=== PATIENT | male | born 1955 | race Caucasian/White ===

== ENCOUNTER 2019-04-08 16:15 | Inpatient (IN) | payer OTHER ==
[~2019-04-08] VITALS: Ht 170.2 cm; Wt 83.9 kg
[~2019-04-08 16:15] MED LIST: HEPSERA10 MG PO; PANTOPRAZOLE SO40 MG PO
--- OUTSIDE RECORDS SUMMARY | 2019-04-08 16:18 | XMS REPORT | Continuity of Care Document ---
Author Author [facility] Organization [facility] Address Unknown Phone Unavailable Care Team Providers Care Group Home Manager Name Role Phone MD Darien, Christelle CASTAÑEDA Unavailable Insurance Providers Payer name Policy type / Coverage type Policy ID Covered libertarian ID Policy Russell [facility] Encounters Encounter Performer Location Date Office Visit Christelle Ledzema MD [facility] Colorectal Surgery Apr 07, 2014 Allergies, Adverse Reactions, Alerts Type Substance Reaction Status Drug allergy MORPHINE Active Drug allergy LEVAQUIN Active Drug allergy IBUPROFEN Active Drug allergy CODEINE Active Problems Problem Effective Dates Problem Status BLEEDING, RECTAL/ANAL Apr 07, 2014 Active EXTERNAL HEMORRHOIDS, THROMBOSED Apr 07, 2014 Active SCREENING FOR COLON CANCER Apr 07, 2014 Active RECTAL PAIN Apr 07, 2014 Active Procedures Date Description Comments Apr 07, 2014 smoking status Never smoker Medications Medication Instructions Start Date Status ADEFOVIR DIPIVOXIL 10 MG TABS 1 tablet once a day Apr 07, 2014 Active PANTOPRAZOLE SODIUM 40 MG TBEC once a day Apr 07, 2014 Active SIMVASTATIN 10 MG TABS 1 tablet once a day Apr 07, 2014 Active Vital Signs Date Description Test Result Apr 07, 2014 weight E&M WEIGHT 189 lb Apr 07, 2014 temperature E&M TEMPERATURE 98.6 deg f Apr 07, 2014 pulse rate E&M PULSE RATE 78 /min Apr 07, 2014 blood pressure, systolic BP SYSTOLIC 143 mm Hg Apr 07, 2014 blood pressure, diastolic BP DIASTOLIC 85 mm Hg
--- OUTSIDE RECORDS SUMMARY | 2019-04-08 16:18 | XMS REPORT | Continuity of Care Document ---
Author Author [facility] Address Unknown Phone Unavailable Care Team Providers Care Video Systems Engineer Name Role Phone MD Darien, Christelle Unavailable Insurance Providers Payer name Policy type / Coverage type Policy ID Covered libertarian ID Policy Russell [facility] ([facility]) Encounters Encounter Performer Location Date Lab Report Christelle Ledezma MD [facility] Apr 10, 2014 Allergies, Adverse Reactions, Alerts Type Substance [...]
--- OUTSIDE RECORDS SUMMARY | 2019-04-08 16:18 | XMS REPORT | Continuity of Care Document ---
Author Author [facility] Address Unknown Phone Unavailable Care Team Providers Care Inspector Brake Lining Name Role Phone [employer] Unavailable Unavailable Problems Problem Status Onset Date Classification Date Reported Comments Source BLEEDING, RECTAL/ANAL Active 04/07/2014 Condition 04/10/2014 [facility] EXTERNAL HEMORRHOIDS, THROMBOSED Active 04/07/2014 Condition 04/10/2014 [facility] SCREENING FOR COLON CANCER Active 04/07/2014 Condition 04/10/2014 [facility] RECTAL PAIN Active 04/07/2014 Condition 04/10/2014 [facility] Medications Medication Details Route Status Patient Instructions Ordering Provider Order Date Source ADEFOVIR DIPIVOXIL 10 MG TABS 1 tablet once a day Active 04/07/2014 [facility] PANTOPRAZOLE SODIUM 40 MG TBEC once a day Active 04/07/2014 [facility] SIMVASTATIN 10 MG TABS 1 tablet once a day Active 04/07/2014 [facility] Allergies, Adverse Reactions, Alerts Substance Category Reaction Severity Reaction type Status Date Reported Comments Source MORPHINE Drug allergy MORPHINE 04/07/2014 [facility] LEVAQUIN Drug allergy LEVAQUIN 04/07/2014 [facility] IBUPROFEN Drug allergy IBUPROFEN 04/07/2014 [facility] CODEINE Drug allergy CODEINE 04/07/2014 [facility] Immunizations No Data Provided for This Section Results No Data Provided for This Section Pathology Reports No Data Provided for This Section Diagnostic Reports No Data Provided for This Section Consultation Notes No Data Provided for This Section Discharge Summaries No Data Provided for This Section History and Physicals No Data Provided for This Section Vital Signs Vital Sign Value Date Comments Source Weight 189 04/07/2014 [facility] Temperature Oral (F) 98.6 F 04/07/2014 [facility] Heart Rate 78 04/07/2014 [facility] Systolic (mm Hg) 143 04/07/2014 [facility] Diastolic (mm Hg) 85 04/07/2014 [facility] Encounters Location Location Details Encounter Type Encounter Number Reason For Visit Attending Provider ADM Date DC Date Status Source [facility] Colorectal Surgery Office Visit [id number] Christelle Ledezma MD 04/07/2014 04/07/2014 [facility] Lab Report [id number] Christelle Ledezma MD 04/10/2014 04/10/2014 [facility] Procedures No Data Provided for This Section Assessment and Plan No Data Provided for This Section Plan of Care No Data Provided for This Section Social History No Data Provided for This Section Family History No Data Provided for This Section Advance Directives No Data Provided for This Section Functional Status No Data Provided for This Section
--- NOTE | 2019-04-08 17:40 | Diagnostic Imaging Report ---
Examination: Single AP view of the chest. COMPARISON: None. INDICATION: Vision loss DISCUSSION: Lines/tubes: 3-lead pacemaker. Lungs: The lungs are well inflated and clear. No pneumonia or pulmonary edema. Pleura: No pleural effusion or pneumothorax. Heart and mediastinum: The heart and the mediastinum are unremarkable. Bones and soft tissues: No acute bony abnormalities. IMPRESSION: 1. No acute cardiopulmonary abnormalities. Signed by: Dr. Jordan Munoz M.D. on 04/08/2019 5:36 PM
--- NOTE | 2019-04-08 17:47 | Diagnostic Imaging Report ---
History:Headache, vision loss left eye. Comparison studies: None Technique: Axial images were obtained from the skull base to the vertex. Coronal and sagittal reconstructions obtained from the axial data. Dose modulation, iterative reconstruction, and/or weight based adjustment of the mA/kV was utilized to reduce the radiation dose to as low as reasonably achievable. Findings: Scalp/skull: No abnormalities. No fractures, blastic or lytic lesions. Extra-axial spaces: No masses. No fluid collections. Brain sulci: Appropriate for age. Ventricles: Normal in size and configuration. No hydrocephalus. Parenchyma: No abnormal densities. No masses, hemorrhage, acute or chronic cortical vascular insults. Sellar/suprasellar region: No abnormalities Craniocervical junction: Patent foramen magnum. No Chiari one malformation. Atherosclerotic calcifications of the carotid siphons. IMPRESSION: No acute abnormalities . Signed by: DR Henry Norris M.D. on 04/08/2019 5:43 PM
[2019-04-08] MEDS ORDERED: ONDANSETRON HCL INJ 2MG/ML 2ML 2 MG/ML VIAL IV PRN (18:30)
[2019-04-08] MEDS ORDERED: ASPIRIN 81 MG CHEW TAB PO ONE (18:30)
[2019-04-08] MEDS ORDERED: ZOLPIDEM TARTRATE 5 MG TAB PO PRN (18:30)
[2019-04-08] MEDS ORDERED: ACETAMINOPHEN 325 MG TAB PO PRN (18:30)
[2019-04-08 18:46] LABS: BASOPHILS % 0.3 % (0.0-1.0); EOSINOPHILS # (AUTO) 0.1 (0.0-0.4); EOSINOPHILS % 1.1 % (0.0-6.0); HEMATOCRIT 45.2 % (38.2-49.6); HEMOGLOBIN 15.4 g/dL (14.0-18.0); LYMPHOCYTES # (AUTO) 1.4 (1.0-3.2); LYMPHOCYTES % 21.7 % (18.0-39.1); MEAN CORPUSCULAR HEMOGLOBIN 31.1 pg (28-32); MEAN CORPUSCULAR HGB CONC 34.1 g/dL (31-35); MEAN CORPUSCULAR VOLUME 91.3 fL (81-99); MONOCYTES # (AUTO) 0.5 (0.2-0.8); MONOCYTES % 7.6 % (4.4-11.3); NEUTROPHILS # (AUTO) 4.3 (2.1-6.9); PLATELET COUNT 193 x10e3/uL (140-360); RED BLOOD COUNT 4.95 x10e6/uL (4.3-5.7); RED CELL DISTRIBUTION WIDTH 12.4 % (11.7-14.4)
[2019-04-08 18:50] LABS: BILIRUBIN,URINE NEGATIVE (NEGATIVE); CLARITY,URINE CLEAR (CLEAR); COLOR,URINE YELLOW (YELLOW); KETONES,URINE NEGATIVE (NEGATIVE); LEUKOCYTE ESTERASE ,URINE NEGATIVE (NEGATIVE); NITRITE,URINE NEGATIVE (NEGATIVE); PROTEIN,URINE DIPSTICK NEGATIVE (NEGATIVE); URINE UROBILINOGEN 0.2 mg/dL (0.2 - 1)
--- OUTSIDE RECORDS SUMMARY | 2019-04-08 18:51 | XMS REPORT ---
Author [facility] Address Unknown Phone Unavailable Care Team Providers Care Real Estate Underwriter Name Role Phone Kelly COOPER Unavailable Unavailable Problems This patient has no known problems. Allergies, Adverse Reactions, Alerts This patient has no known allergies or adverse reactions. Medications This patient has no known medications. Results Test Description Test Time Test Comments Text Results Atomic Results Result Comments CHEST SINGLE (NOT PORTABLE) 2019-04-08 17:36:00 [facility] [address] [place] [address] Patient Name: JACKIE LINARES MR #: [id number] : 1955 Age/Sex: 64/M Req #: [id number] Adm Physician: Ordered by: STEPHANIE COOPER MD Report #: [id number] Location: ER Room/Bed: Procedure: [id number] DX/CHEST SINGLE (NOT PORTABLE) Exam Date: 04/08/19 Exam Time: 1650 REPORT STATUS: Signed Examination: Single AP view of the chest. C OMPARISON: None. INDICATION: Vision loss DISCUSSION: Lines/tubes: 3-lead pacemaker. Lungs: The lungs are well inflated and clear. No pneumonia or pulmonary edema. Pleura: No pleural effusion or pneumothorax. Heart and mediastinum: The heart and the mediastinum are unremarkable. Bones and soft tissues: No acute bony abnormalities. IMPRESSION: 1. No acute cardiopulmonary abnormalities. Signed by: Dr. Katrina Ruiz M.D. on 04/08/2019 5:36 PM Dictated By: KATRINA RUIZ MD 35 Transcribed By: THERESA on 04/08/191735 COPY TO: STEPHANIE COOPER MD CT BRAIN WO 2019-04-08 17:36:00 [place] [address] Patient Name: JACKIE LINARES MR #: [id number] : 1955 Age/Sex: 64/M Req #: [id number] Adm Physician: Ordered by: STEPHANIE COOPER MD Report #: [id number] Location: Room/Bed: Procedure: CT/CT BRAIN WO Exam Date: 04/08/19 Exam Time: 1657 REPORT STATUS: Signed History:Headache, vision loss left eye. Comparison studies: None Technique: Axial images were obtained from the skull base to the vertex. Coronal and sagittal reconstructions obtained from the axial data. Dose modulation, iterative reconstruction, and/or weight based adjustment of the mA/kV was utilized to reduce the radiation dose to as low as reasonably achievable. Findings: Scalp/skull: No abnormalities. No fractures, blastic or lytic lesions. Extra-axial spaces: No masses. No fluid collections. Brain sulci: Appropriate for age. Ventricles: Normal in size and configuration. No hydrocephalus. Parenchyma: No abnormal densities. No masses, hemorrhage, acute or chronic cortical vascular insults. Sellar/suprasellar region: No abnormalities Craniocervical junction: Patent foramen magnum. No Chiari one malformation. Atherosclerotic calcifications of the carotid siphons. IMPRESSION: No acute abnormalities . Signed by: Phill PalomoD. on 04/08/2019 5:43 PM Dictated By: LJ BARNETT MD 42 Transcribed By: THERESA on 04/08/191742 COPY TO: STEPHANIE COOPER MD
--- OUTSIDE RECORDS SUMMARY | 2019-04-08 18:51 | XMS REPORT | Continuity of Care Document ---
Author Author [facility] Address Unknown Phone Unavailable Care Team Providers Care Booster Operator Name Role Phone [employer] Unavailable Unavailable Problems Problem Status Onset Date Classification Date Reported Comments Source BLEEDING, RECTAL/ANAL Active 04/07/2014 Condition 04/10/2014 [facility] EXTERNAL HEMORRHOIDS, THROMBOSED Active 04/07/2014 Condition 04/10/2014 [facility] SCREENING FOR COLON CANCER Active 04/07/2014 Condition 04/10/2014 [facility] RECTAL PAIN Active 04/07/2014 Condition 04/10/2014 [facility] Medications Medication Details Route Status Patient Instructions Ordering Provider Order Date Source ADEFOVIR DIPIVOXIL 10 MG TABS 1 tablet once a day Active 04/07/2014 [facility] PANTOPRAZOLE SODIUM 40 MG TBEC once a day Active 04/07/2014 [facility] SIMVASTATIN 10 MG TABS 1 tablet once a day Active 04/07/2014 [facility] Allergies, Adverse Reactions, Alerts Substance Category Reaction Severity Reaction type Status Date Reported Comments Source MORPHINE Drug allergy MORPHINE 04/07/2014 [facility] LEVAQUIN Drug allergy LEVAQUIN 04/07/2014 [facility] IBUPROFEN Drug allergy IBUPROFEN 04/07/2014 [facility] CODEINE Drug allergy CODEINE 04/07/2014 [facility] Immunizations No Data Provided for This Section [...] Date Comments Source Weight 189 04/07/2014 [facility] Temperature Oral (F) 98.6 F 04/07/2014 [facility] Heart Rate 78 04/07/2014 [facility] Systolic (mm Hg) 143 04/07/2014 [facility] Diastolic (mm Hg) 85 04/07/2014 [facility] Encounters Location Location Details Encounter Type Encounter Number Reason For Visit Attending Provider ADM Date DC Date Status Source [facility] Colorectal Surgery Office Visit [id number] Christelle Ledezma MD 04/07/2014 04/07/2014 [facility] Lab Report [id number] Christelle Ledezma MD 04/10/2014 04/10/2014 Medical Group [...]
[2019-04-08 18:53] LABS: INR 0.93
[2019-04-08 19:04] LABS: ALANINE AMINOTRANSFERASE 26 IU/L (0-55); ALBUMIN 4.5 g/dL (3.5-5.0); ALBUMIN/GLOBULIN RATIO 1.5 (0.8-2.0); ALKALINE PHOSPHATASE 84 IU/L (40-150); ANION GAP 13.8 mmol/L (8-16); BLOOD UREA NITROGEN 8 mg/dL (7-26); BUN/CREATININE RATIO 7 (6-25); CALCIUM 9.9 mg/dL (8.4-10.2); CARBON DIOXIDE 26 mmol/L (22-29); CHLORIDE 103 mmol/L (98-107); CREATINE KINASE 69 IU/L (30-200); CREATININE, SERUM 1.17 mg/dL (0.72-1.25); EST GLOMERULAR FILTRATION RATE > 60 ML/MIN (60-); GLUCOSE 95 mg/dL (74-118); MAGNESIUM 2.2 MG/DL (1.3-2.1); POTASSIUM 3.8 mmol/L (3.5-5.1); SODIUM 139 mmol/L (136-145)
[2019-04-08 19:30] LABS: CHOL/HDL RATIO 4.2 (3.9-4.7)
--- NOTE | 2019-04-08 19:43 | History and Physical ---
Mr. Enrique is a complex 64-year-old man, who presented to my office today with a complaint of visual difficulty. HISTORY OF PRESENT ILLNESS: The patient reports when he woke this morning that his vision in his left eye was completely black. In about 5 minutes, vision started to come back. He thinks it is not entirely normal at this time. The patient also reports that earlier this week probably on Friday, he had some symptoms in his right eye such as "stars," which his tongue presser, Dr. Morris tells him his ocular migraines. He chose to stop taking aspirin several years ago on his own. PAST MEDICAL HISTORY: Significant for hepatitis B. He required 1st pacemaker implant in 1999 for bradycardia. He had a lead fracture and replaced lead with new generator in [place] in April 2005. He had remote cholecystectomy and appendectomy, laser lead extraction in February of 2012, with new lead and last cardiac catheterization in November of 2012, showed very mild coronary artery disease. He had trauma to his left arm in 2008, requiring plates and screws. PERSONAL AND SOCIAL HISTORY: He does not smoke nor drink. FAMILY HISTORY: Father at 82 after coronary artery bypass graft surgery. CURRENT MEDICATIONS: At home include: 1. Protonix 40 mg daily. 2. Adefovir dipivoxil 10 mg daily. 3. Simvastatin 10 mg daily. As mentioned above, he has previously chosen not to take aspirin. PHYSICAL EXAMINATION: GENERAL: At this time shows a pleasant, alert man who is oriented, conversant, moving all 4 extremities fluent. VITAL SIGNS: Blood pressure is 124/80, pulse 74 and regular. HEAD, EYES, EARS, NOSE, AND THROAT: Relatively unremarkable. NECK: No jugular venous distention. No bruits. THORAX: Pacemaker sites intact. Heart sounds S1 and S2 are equal. No murmurs. LUNGS: Clear. ABDOMEN: Protuberant. EXTREMITIES: No cyanosis, clubbing, or edema. LABORATORY DATA: EKG shows sinus rhythm with dual-chamber ventricular pacing. Other studies are still pending. ASSESSMENT: 1. Probable amaurosis. 2. Known atherosclerotic disease with mild coronary disease. 3. History of hepatitis B. 4. Pacemaker appropriate function. PLAN: I have written orders for aspirin and continue his home medications. We will check carotid Doppler scan and echocardiogram and ask for Neurology consultation; hopefully, then with CT and/or CAT scan. Further management based on clinical course. MD JOHN Crespo/GAGAN /[id number] cc: Elias You MD
--- NOTE | 2019-04-08 20:03 | NUR ---
consult called to dr malave- will see patient in the morning.
[2019-04-08 20:30] VITALS: BP 141/92
--- NOTE | 2019-04-08 20:30 | NUR ---
PATIENT RECEIVED FROM ER. PATENT IS AAOX3, RESP EVEN AND UNLABORED. PATIENT STATED HE HAD A BLACK OUT FROM HIS LEFT EYE FOR 10 MINUTES THIS MORNING. BLURRY VISION TO LEFT EYE NOTED AT THIS TIME. TELE IN PLACE. ORIENTED TO ROOM. CALL LIGHT WITH REACH. INSTRUCT TO CALL FOR ASSISTANCE. BED LOW/LOCKED. CONTINUE TO MONITOR CLOSELY
[2019-04-08 21:00] VITALS: BP 141/92
[2019-04-08] MEDS ORDERED: SIMVASTATIN 40 MG TAB PO SCH (21:00)
[2019-04-08] MEDS ORDERED: SIMVASTATIN20 MG PO (21:02)
[2019-04-08 21:10] VITALS: BP 141/92
[2019-04-09 00:05] VITALS: BP 134/75
[2019-04-09 00:28] LABS: CREATINE KINASE MB 0.7 ng/mL (0-5.0)
[2019-04-09 03:34] VITALS: BP 128/70
[2019-04-09 05:26] LABS: BASOPHILS % 0.5 % (0.0-1.0); EOSINOPHILS # (AUTO) 0.1 (0.0-0.4); EOSINOPHILS % 2.2 % (0.0-6.0); HEMATOCRIT 41.6 % (38.2-49.6); LYMPHOCYTES # (AUTO) 1.4 (1.0-3.2); LYMPHOCYTES % 34.1 % (18.0-39.1); MEAN CORPUSCULAR HEMOGLOBIN 30.8 pg (28-32); MEAN CORPUSCULAR HGB CONC 33.7 g/dL (31-35); MEAN CORPUSCULAR VOLUME 91.4 fL (81-99); MONOCYTES # (AUTO) 0.5 (0.2-0.8); MONOCYTES % 11.3 % (4.4-11.3); NEUTROPHILS # (AUTO) 2.1 (2.1-6.9); NEUTROPHILS % 51.4 % (38.7-80.0); PLATELET COUNT 167 x10e3/uL (140-360); RED BLOOD COUNT 4.55 x10e6/uL (4.3-5.7); RED CELL DISTRIBUTION WIDTH 12.2 % (11.7-14.4)
[2019-04-09 05:50] LABS: ALANINE AMINOTRANSFERASE 20 IU/L (0-55); ALBUMIN 3.6 g/dL (3.5-5.0); ALBUMIN/GLOBULIN RATIO 1.4 (0.8-2.0); ALKALINE PHOSPHATASE 68 IU/L (40-150); ANION GAP 13.7 mmol/L (8-16); BLOOD UREA NITROGEN 11 mg/dL (7-26); BUN/CREATININE RATIO 12 (6-25); CALCIUM 9.1 mg/dL (8.4-10.2); CARBON DIOXIDE 24 mmol/L (22-29); CHLORIDE 104 mmol/L (98-107); CREATININE, SERUM 0.94 mg/dL (0.72-1.25); EST GLOMERULAR FILTRATION RATE > 60 ML/MIN (60-); GLUCOSE 99 mg/dL (74-118); POTASSIUM 3.7 mmol/L (3.5-5.1); SODIUM 138 mmol/L (136-145)
[2019-04-09 06:15] LABS: CREATINE KINASE MB 0.7 ng/mL (0-5.0)
[2019-04-09] MEDS ORDERED: PANTOPRAZOLE SOD 40 MG TABEC PO SCH (07:30)
[2019-04-09 08:08] VITALS: BP 134/81
[2019-04-09 08:47] VITALS: BP 134/81
[2019-04-09] MEDS ORDERED: ASPIRIN 325 MG TAB EC PO SCH (09:00)
[2019-04-09 12:22] VITALS: BP 127/80
[2019-04-09 15:23] VITALS: BP 123/77
[2019-04-09 15:56] LABS: CREATINE KINASE 62 IU/L (30-200)
[2019-04-09] MEDS ORDERED: ASPIRIN ENTERI325 MG PO (17:37)
--- NOTE | 2019-04-09 18:28 | NUR ---
The patient is alert and ambulatory. His IV was removed and tele box removed. He verbalized understanding of discharge instructions and was given copies of his discharge papers.
--- NOTE | 2019-04-10 01:15 | Consultation ---
DATE OF CONSULTATION: 04/09/2019 Neurology consult note HISTORY OF PRESENT ILLNESS: Mr. Enrique is a 64-year-old right-hand dominant man with past medical history significant for hyperlipidemia, coronary artery disease, and symptomatic bradycardia status post pacemaker placement, admitted to [facility] on April 08, 2019, with symptoms suspicious for transient ischemic attack. Shortly after awakening on the day of admission, the patient lost vision in his left eye. Specifically, Mr. Enrique reports seeing "only black" when closing his right eye while looking out of his left eye. The patient does not report dysarthria, aphasia, facial droop, hemiparesis, hemihypesthesia, poor balance, impairment of gait, dizziness, or confusion associated with the sudden loss of vision in his left eye. The vision loss persists for approximately 8 to 10 minutes, then spontaneously resolved with central vision returning for peripheral vision. Mr. Enrique does not report a headache associated with the above symptoms. On the afternoon of admission, the patient saw his hobbing machine operator, Dr. Wilman Sears. Dr. Sears instructed Mr. Enrique to proceed to the emergency center at [facility] for further evaluation of his symptoms. Upon arrival in the emergency center, the patient was afebrile with a blood pressure of 137/76 and a pulse of 75 beats per minute. His neurological examination was documented as being nonfocal. A CT of the brain without contrast was performed while the patient was in the emergency center. There was no evidence of recent large territorial ischemia or hemorrhage. Mr. Enrique was subsequently admitted to [facility] for further evaluation and treatment of his symptoms. REVIEW OF SYSTEMS: Loss of vision. Otherwise, a 12-point review of systems is negative. PAST MEDICAL HISTORY: Hyperlipidemia, coronary artery disease (mild on the last cardiac catheterization in 2012), symptomatic bradycardia, nephrolithiasis, gastroesophageal reflux disease, and hepatitis B. PAST SURGICAL HISTORY: Pacemaker placement, pacemaker lead fracture/replacement, appendectomy, cholecystectomy, cardiac catheterization, left arm surgery following trauma, tonsillectomy, removal of kidney stones, and multiple liver biopsies. PAST HOSPITALIZATIONS: Surgeries/procedures as listed. FAMILY MEDICAL HISTORY: The patient's father is from coronary artery disease. His father had an arrhythmia as well. Multiple paternal uncles have coronary artery disease. Mr. Enrique has two brothers, both of whom are alive and healthy. SOCIAL HISTORY: Mr. Enrique is single. 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 The patient reports a remote history of tobacco use, but quit smoking cigarettes 30 years ago. The patient does not report alcohol or recreational drug use. HOME MEDICATIONS: Hepsera 10 mg by mouth daily, simvastatin 10 mg by mouth at bedtime daily, and Protonix 40 mg by mouth daily. ALLERGIES: AZITHROMYCIN, CODEINE, HYDROCODONE, MORPHINE. THE PATIENT REPORTS A PEANUT ALLERGY. NO KNOWN ALLERGIES TO LATEX. NO KNOWN ALLERGIES TO IODINE OR OTHER CONTRAST MATERIALS. PHYSICAL EXAMINATION: VITAL SIGNS: Height 67 inches, weight 185 pounds, BMI 29.0 kg/m2, blood pressure 123/77 mmHg, pulse 70 beats per minute, respiratory rate 20 breaths per minute, and oxygen saturation 95% on room air. General: The patient is awake and alert, does not appear distressed. Overweight. HEENT: Normocephalic, and atraumatic. Pupils are equal, round, and reactive to light. Moist mucous membranes. NECK: Supple. No appreciable thyromegaly. No appreciable carotid bruits. CARDIOVASCULAR: S1, S2, regular rate and rhythm. No murmurs, rubs, or gallops. RESPIRATORY: Clear to auscultation bilaterally. No wheezes, rhonchi, or rales. EXTREMITIES: The skin is warm and dry. No clubbing, cyanosis, or edema. The posterior tibial and dorsalis pedis pulses are 2+ and symmetric. SKIN: No rashes or lesions. NEUROLOGIC: Memory/Attention: The patient is awake and alert, oriented to person, place, time, and situation. Cranial Nerves: Cranial nerve I - not tested. Cranial nerve II, III, IV, and - the pupils are equal and round, reactive briskly to light (from 4 mm to 2 mm). Extraocular movements intact. No nystagmus. Cranial nerve V - sensation to light touch and pinprick is intact in the bilateral V1 through V3 distributions. Strength in the temporalis and masseter muscles is within normal limits. Cranial nerve VII - the face is symmetric as are all facial movements. Strength is within normal limits. Cranial nerve VIII - hearing is intact to finger rub bilaterally. Cranial nerve IX, X - the soft palate elevates equally and symmetrically. Cranial nerve XI - normal strength of the bilateral sternocleidomastoid and trapezius muscles. Cranial nerve XII - the tongue protrudes midline and moves symmetrically from [id number]. Strength: Bulk is normal. Strength is 5/5 in the bilateral deltoids, triceps, biceps, brachioradialis, wrist flexors and extensors, finger flexors and extensors, intrinsic hand muscles, hip flexors, knee flexors and extensors, ankle dorsiflexion and plantar flexion, and intrinsic foot muscles. Tone is normal. DTRs: Deep tendon reflexes are 2+ and symmetric at the triceps, biceps, brachioradialis, patellas, and Achilles. Plantar responses are flexor bilaterally. Sensation: Sensation is intact to light touch and pinprick in both arms and both legs. Cerebellar: Vhlqre-czax-rqkaal and heel-miller movements are intact without dysmetria or other impairment. Gait: Deferred. Speech: Spontaneous speech is normal without appreciable dysarthria or aphasia. Repetition is intact. Involuntary movements: None. Pronator Drift: None. LABORATORY DATA: A comprehensive metabolic panel is significant only for mildly elevated total bilirubin of 1.4 and total protein of 6.2. Cardiac enzymes are negative x4. Total cholesterol 135, triglycerides 82, LDL cholesterol 87, HDL cholesterol 32. Hemoglobin A1c 5.2. The CBC with differential and platelets reveals a white blood cell count of 4.08 with a normal differential. The hemoglobin and hematocrit are 14.0 and 41.6, respectively. The platelet count is 167. The coagulation profile is within normal limits. Urinalysis is unremarkable. DIAGNOSTIC STUDIES: Electrocardiogram on 04/09/2019: Electronic ventricular pacemaker at 68 beats per minute. Chest x-ray on 04/08/2019: No acute cardiopulmonary abnormalities. CT of the brain without contrast on 04/08/2019: On my review, there is no evidence of recent or remote large territorial ischemia, hemorrhage, mass, or mass effect. Cerebral volumes are appropriate for age. There are no findings suggestive of chronic small vessel ischemic disease. Echocardiogram on 04/09/2019: Ejection fraction 40%. Left ventricular hypertrophy. Trace to mild tricuspid and mitral regurgitation. Bilateral carotid artery ultrasound with Doppler on 04/09/2019: There is atherosclerosis without hemodynamically significant stenosis at the right carotid bulb. ASSESSMENT AND PLAN: Mr. Enrique is a 64-year-old right-hand dominant man with hyperlipidemia and coronary artery disease, admitted to [facility] on April 08, 2019, with amaurosis fugax of the left eye, a transient ischemic attack of the central retinal artery. At present, the patient's neurological examination is nonfocal. His laboratory data and other diagnostic studies have been reviewed and are documented above. RECOMMENDATIONS: As follows: 1. Continue aspirin 325 mg by mouth daily for stroke prophylaxis. 2. The patient's goal blood pressure is less than 130/70 mmHg. At present, the patient's blood pressures are at goal. Monitor vital signs per unit protocol and add/adjust antihypertensive medications as appropriate. 3. The patient's goal total cholesterol is less than 200 with an LDL of less than 70. The patient's LDL is mildly elevated above the goal. It is recommended the patient's home medication of simvastatin be increased to 20 mg by mouth at bedtime daily. 4. The patient's goal hemoglobin A1c is less than 7.0. The patient is at goal. He does not have diabetes mellitus, or prediabetes. 5. The patient may be discharged home per the primary service. Thank you for this consultation. TIME SPENT: 70 minutes. Terra Cummins MD CP/GAGAN /[id number] MTDD
--- NOTE | 2019-04-10 17:07 | Discharge Summary ---
Mr. Enrique is a complex 64-year-old man, who was sent from my office on the with a complaint of vision loss in his left eye 5 minutes. HOSPITAL COURSE: While his vision had returned, it was felt that he had an episode of amaurosis. He was given aspirin [address] scan of the brain was unremarkable. His carotid Doppler scan showed minimal atherosclerotic plaquing. His echocardiogram relatively unremarkable, EF 45 50%. With the pacemaker lead seen. His other. LABS: Rolled from the chemistries did show a glucose of 136. Lipid profile showed total cholesterol 135, HDL 32, LDL 87. Bilirubin 1.7. His transaminases are normal. The ER doctor idania cardiac enzymes which were normal. Today, the patient's vision is improved and he felt he was seen by Dr. Cummins and felt to be stable to be discharged. It is recommended he take aspirin 325 mg daily. He will follow up in my office in two weeks and he is recommended to get back to his foil spooler this coming week for re-evaluation as he has also been felt to have ocular migraines in the past. DISCHARGE DIAGNOSES: 1. Amaurosis fugax. 2. Hyperlipidemia. 3. Very mild carotid disease. 4. History of ocular migraines. 5. Permanent pacemaker. Appropriate function. MD JOHN Crespo/BETHL /[id number] cc: Terra Cummins MD
== END 2019-04-09 19:20 | disposition home or self-care (01) | DRG 123 ==
LOC: ER 16:15 → ERHOLD 18:23 → MED/SURG2 20:18
PROVIDERS: ADMIT Internal Medicine Cardiovascular Disease; ATTEND Internal Medicine Cardiovascular Disease
DX: G45.3 Amaurosis fugax (principal); E78.5 Hyperlipidemia, unspecified; I65.29 Occlusion and stenosis of unspecified carotid artery; G43.809 Other migraine, not intractable, without status migrainosus; Z95.0 Presence of cardiac pacemaker; R00.1 Bradycardia, unspecified; I25.10 Atherosclerotic heart disease of native coronary artery without angina pectoris; K21.9 Gastro-esophageal reflux disease without esophagitis; Z86.73 Personal history of transient ischemic attack (TIA), and cerebral infarction without residual deficits; Z86.19 Personal history of other infectious and parasitic diseases
CPT/HCPCS: 36415; 70450; 71045; 80053; 80061; 81001; 82550; 82553; 82948; 83036; 83735; 84484; 85025; 85610; 85730; 93005; 93306; 93880; 99284